=== PATIENT | male | born 1960 | race Caucasian/White ===

== ENCOUNTER → 2018-10-29 | Outpatient (CLI) | payer BC ==
[2018-10-29 15:45] LABS: Basophils # (A) 0.1 k/uL (0-0.2); Basophils % (A) 1 %; Eosinophils # (A) 0.2 k/uL (0-0.7); Eosinophils % (A) 2 %; HCT 44.1 % (39.0-53.0); HGB 14.7 gm/dL (13.0-17.5); Lymphocytes # (A) 1.6 k/uL (1.0-4.8); Lymphocytes % (A) 23 %; MCHC 33.3 g/dL (31.0-37.0); Mean Platelet Volume 6.8; Monocytes # (A) 0.4 k/uL (0-1.0); Monocytes % (A) 6 %; Neutrophils # (A) 4.6 k/uL (1.3-7.7); Neutrophils % (A) 66 %; Platelet Count 222 k/uL (150-450); RBC 4.74 m/uL (4.30-5.90)
[2018-10-29 22:51] LABS: Gliadin AB IgA, Unit 0.7 U/mL
[2018-10-29 23:16] LABS: Albumin 4.5 g/dL (3.80-4.90); Albumin/Globulin Ratio 2.5 (1.60-3.17); Calcium 9.3 mg/dL (8.7-10.3); Globulin 1.8 g/dL (1.6-3.3); Total Bilirubin 0.5 mg/dL (0.2-1.2); Total Protein 6.3 g/dL (6.2-8.2)
== END | disposition home or self-care (01) ==
LOC: LABWHC1 12:58
PROVIDERS: ATTEND Internal Medicine
DX: R14.0 Abdominal distension (gaseous) (principal)
CPT/HCPCS: 36415; 80053; 83516; 84153; 84443; 84481; 85025

== ENCOUNTER 2018-11-18 09:17 | Day surgery (SDC) | payer BC ==
[2018-11-17 08:10] VITALS: BMI 27.0
[~2018-11-18 09:17] MED LIST: LACTATED RINGERS 1,000 ML IV SCH; LIDOCAINE 1% 20 ML VIAL (10MG/ML) FOR IV START INTRADERMA PRN
[2018-11-18 09:40] VITALS: RESP 16; TEMP 97.8
[2018-11-18] MEDS ORDERED: PROPOFOL 10 MG/ML 20 ML VIAL IV ONE (10:46)
[2018-11-18] MEDS ORDERED: LIDOCAINE 1% INJ 10MG/ML (20 ML MDV) ONE (10:46)
[2018-11-18] MEDS ORDERED: LACTATED RINGERS 1,000 ML IV ONE (11:51)
--- NOTE | 2018-11-18 11:55 | P.PCN ---
Date of Procedure: 11/18/18 Description of Procedure: BRIEF HISTORY: Pleasant 58-year-old male who was seen in the outpatient setting with reports of increased gas and distention. The patient had reported that over the prior 4 months before being seen he had been suffering from increased gas and abdominal distention. He denied any sick contacts, or unusual foods, new medications but did report an increase in stress. He reported feeling more bothered at night, and having increased flatulence. He also reported some left-sided abdominal aching pain. He continues to report one bowel movement daily. He also reported some blood with wiping. No nausea or vomiting, heartburn or reflux. He did report a high intake of dairy products. No family history of colon cancer. No unintentional weight loss. PROCEDURE PERFORMED: Colonoscopy with biopsy. PREOPERATIVE DIAGNOSIS: Screening colonoscopy, blood per rectum, abdominal pain. ESTIMATED BLOOD LOSS: Minimal. IV sedation per Anesthesia. PROCEDURE: After informed consent was obtained, the patient, was brought into the endoscopy unit. IV sedation was administered by Anesthesia under continuous monitoring. Digital rectal examination was significant for a palpable lesion in the rectum. Initially the Olympus CF-190 flexible video colonoscope was then inserted in the rectum, gradually advanced into the cecum without any difficulty. Careful examination was performed as the scope was gradually being withdrawn. the terminal ileum was intubated and biopsied.Ileocecal valve and the appendiceal orifice were visualized and appeared normal. Prep wafairMucosa of the cecum, ascending colon, transverse colon, descending colon, and sigmoid colon appeared normal. Random biopsies were taken in the right colon, transverse colon and left colon given complaints of abdominal distention and gas. In the rectum and mass starting at 10 cm from the anal verge were noted. The mass was large, friable and nonobstructing. Multiple biopsies of the mass were taken, with suspicion for rectal cancer. Retroflexion was performed in the rectum and no les ions were seen, mild internal hemorrhoids noted. The patient tolerated the procedure well. IMPRESSION: Nonobstructing rectal mass with suspicion for rectal cancer, multiple biopsies taken. Mild internal hemorrhoids. Random biopsies of the terminal ileum, right colon, transverse and left colon. RECOMMENDATIONS: Findings of this examination were discussed with the patient. Okay to resume diet. Avoid NSAID medications and anticoagulation for today and tomorrow and biopsies taken. Await pathology from biopsies. We'll refer patient to oncology service for further evaluation. Follow-up in GI clinic as previously scheduled.
[2018-11-18 12:11] VITALS: BP 117/75; PULSE 49
== END 2018-11-18 12:35 | disposition home or self-care (01) ==
LOC: ORWHC2ENDO 09:17
PROVIDERS: ATTEND Internal Medicine
DX: Z12.11 Encounter for screening for malignant neoplasm of colon (principal); C20 Malignant neoplasm of rectum; K64.8 Other hemorrhoids
CPT/HCPCS: 88305; 45380; J2001; J2704

== ENCOUNTER → 2018-11-27 | Outpatient (CLI) | payer BC ==
--- NOTE | 2018-11-30 08:12 | PE ---
EXAMINATION TYPE: PET CT fusion skull to thigh DATE OF EXAM: 11/27/2018 COMPARISON: NONE HISTORY: Rectal cancer. Initial staging exam no prior chemotherapy, radiation or surgery of the recta l carcinoma. TECHNIQUE: Following the intravenous administration of 10.81 mCi of F-18 FDG, whole body images are performed from the skull base to the midthigh. Images are reviewed on the computer in the coronal, a xial, and sagittal planes. Reconstructed rotating images are created on independent workstation and reviewed on the computer. A localization and attenuation correction CT is performed in conjunction with the PET scan. SCAN: Initial FINDINGS: Mediastinal background: 1.73 Abdominal background: 2.5 SKULL BASE AND NECK: No suspicious hypermetabolic uptake CHEST, MEDIASTINUM, AND HILAR REGION: No suspicious hypermetabolic uptake ABDOMEN AND PELVIS: The patient's known primary rectal carcinoma demonstrates a maximum SUV of 8.2. OSSEOUS STRUCTURES: Activity within the lumbar spine has a similar uptake in comparison to abdominal background with a maximum SUV up to 2.47 at L4 and L5 and 2.47 also at L1. Remainder of the osseous s tructures demonstrate FDG avidity below abdominal background. OTHER CT: There is mild mucosal thickening in the ethmoid sinuses and incidentally noted xiomara bullo sa bilaterally. Remaining paranasal sinuses and mastoid air cells are well aerated. Degenerative liang ges of the spine are mild to moderate. Punctate sclerotic focus of the left ischium may relate to zane ign bone island on image 256. No hypermetabolic activity. Osseous demineralization of the pelvis is n oted. Pseudoarthrosis of the left L1 transverse process is incidentally seen. The lungs demonstrate m inimal dependent bibasilar atelectasis and scattered pulmonary blebs. Very minimal bilateral retroare olar gynecomastia is also seen. The unenhanced liver, spleen, adrenal glands, pancreas, and kidneys a re unremarkable in morphology. No hydronephrosis or nephrolithiasis. No greater than 1 cm short axis lymph node in the abdomen or pelvis. No suspicious adenopathy is seen within the mesial rectal fascia . No dilated bowel to suggest obstruction. Few colonic diverticula are seen without pericolonic fat s tranding. There is a questionable small hiatal hernia. IMPRESSION: Localized disease with focal hypermetabolic activity in a long segment of the patient's p rimary known rectal carcinoma without evidence of visceral or osseous metastasis in the chest, abdome n, and or pelvis. No enlarged or hypermetabolic adenopathy.
== END | disposition home or self-care (01) ==
LOC: RADPETMAIN 15:13
PROVIDERS: ATTEND Internal Medicine
DX: C20 Malignant neoplasm of rectum (principal)
CPT/HCPCS: 78815; A9552

== ENCOUNTER 2019-05-06 01:51 | Emergency (ER) | payer BC ==
[2019-05-06] MEDS ORDERED: SODIUM CHLORIDE 0.9% 1,000 ML IV ONE (02:11)
--- NOTE | 2019-05-06 02:19 | ED ---
Abdominal Pain HPI - General Chief Complaint: Abdominal Pain Stated Complaint: Issues with Ileostomy Time Seen by Provider: 05/06/19 02:03 Source: patient, family Mode of arrival: wheelchair Limitations: no limitations - History of Present Illness Initial Comments: This patient is a 59-year-old man who presents to be evaluated for abdominal discomfort. The patient relates that he recently had an ileostomy placed after having been found to have rectal cancer. The patient states that from the morning on he has been developing diffuse crampy/bloating abdominal pain. The patient states that he has also had not much stool or gas production for the p ast 6 hours or so. In addition to the discomfort, patient has also been having some nausea this evening though no vomiting. No fever or chills. No chest symptoms. No pain or swelling of the legs. The patient does note that his urination has been less frequent tonight. MD Complaint: abdominal pain Onset/Timin -: hour(s) Location: diffuse Radiation: none Migration to: no migration Severity: moderate Quality: cramping, other (Bloating) Consistency: constant Improves With: nothing Worsens With: nothing Associated Symptoms: nausea - Related Data Home Medications Medication Instructions Recorded Confirmed L.acidoph,Paracasei, B.lactis 1 each PO DAILY 11/17/18 11/18/18 [Probiotic] Allergies Allergy/AdvReac Type Severity Reaction Status Date / Time No Known Allergies Allergy Verified 05/06/19 02:00 Review of Systems ROS Statement: Those systems with pertinent positive or pertinent negative responses have been documented in the HPI. ROS Other: All systems not noted in ROS Statement are negative. Constitutional: Denies: fever, chills Respiratory: Denies: cough, dyspnea Cardiovascular: Denies: chest pain, palpitations, edema, syncope Gastrointestinal: Reports: abdominal pain, nausea. Denies: vomiting, diarrhea, melena, hematochezia Genitourinary: Denies: dysuria, hematuria, testicular pain, testicular mass Musculoskeletal: Denies: back pain Skin: Denies: rash Neurological: Denies: headache Past Medical History Past Medical History: Cancer Additional Past Medical History / Comment(s): increased gas and blood in stool History of Any Multi-Drug Resistant Organisms: None Reported Past Surgical History: Bowel Resection Additional Past Surgical History / Comment(s): surgery on rt great toe, Past Anesthesia/Blood Transfusion Reactions: No Reported Reaction Past Psychological History: No Psychological Hx Reported Smoking Status: Never smoker Past Alcohol Use History: None Reported Past Drug Use History: None Reported - Past Family History Mother Family Medical History: Cancer Father Family Medical History: Cancer General Exam Limitations: no limitations General appearance: alert, in no apparent distress Head exam: Present: atraumatic, normocephalic Eye exam: Present: normal appearance. Absent: scleral icterus, conjunctival injection ENT exam: Present: mucous membranes dry Neck exam: Present: normal inspection Respiratory exam: Present: normal lung sounds bilaterally. Absent: respiratory distress, wheezes, rales, rhonchi, stridor Cardiovascular Exam: Present: regular rate, normal rhythm, normal heart sounds. Absent: systolic murmur, diastolic murmur, rubs, gallop GI/Abdominal exam: Present: distended (Mild), other (Surgical incisions are clean dry and intact. There is presence of an ileostomy in the right lower quadrant. Very minimal output in the bag currently. no blood.). Absent: tenderness, guarding, rebound, rigid, mass Extremities exam: Present: normal inspection, normal capillary refill. Absent: pedal edema, calf tenderness Back exam: Present: normal inspection Neurological exam: Present: alert Skin exam: Present: warm, dry, intact, normal color. Absent: rash Course Vital Signs 05/06/19 01:57 Temperature 98.0 F Pulse Rate 71 Respiratory 18 Rate Blood Pressure 124/95 O2 Sat by Pulse 95 Oximetry Medical Decision Making - Medical Decision Making Patient's 59-year-old man presenting with diffuse abdominal pain, decreased ostomy output, his abdominal series does show small bowel obstruction and some free air under the diaphragm. The patient is only 8 days postoperative, but st ill concern for perforation. Patient started on antibiotics. NG tube placement. Discussed results with patient who would prefer to go back to [facility] and this makes sense given that his surgery was there. - Lab Data Result diagrams: 05/06/19 02:23 05/06/19 02:23 Lab Results 05/06/19 05/06/19 05/06/19 Range/Units 02:23 02:23 02:23 WBC 6.1 (3.8-10.6) k/uL RBC 4.02 L (4.30-5.90) m/uL Hgb 13.4 (13.0-17.5) gm/dL Hct 39.1 (39.0-53.0) % MCV 97.3 (80.0-100.0) fL MCH 33.4 (25.0-35.0) pg MCHC 34.3 (31.0-37.0) g/dL RDW 13.3 (11.5-15.5) % Plt Count 319 (150-450) k/uL Neutrophils % 79 % Lymphocytes % 4 % Monocytes % 9 % Eosinophils % 3 % Basophils % 1 % Neutrophils # 4.8 (1.3-7.7) k/uL Lymphocytes # 0.2 L (1.0-4.8) k/uL Monocytes # 0.6 (0-1.0) k/uL Eosinophils # 0.2 (0-0.7) k/uL Basophils # 0.0 (0-0.2) k/uL Sodium 133 L (137-145) mmol/L Potassium 4.5 (3.5-5.1) mmol/L Chloride 103 (98-107) mmol/L Carbon Dioxide 21 L (22-30) mmol/L Anion Gap 9 mmol/L BUN 22 H (9-20) mg/dL Creatinine 0.80 (0.66-1.25) mg/dL Est GFR (CKD-EPI)AfAm >90 (>60 ml/min/1.73 sqM) Est GFR (CKD-EPI)NonAf >90 (>60 ml/min/1.73 sqM) Glucose 111 H (74-99) mg/dL Plasma Lactic Acid Ryan 0.8 (0.7-2.0) mmol/L Calcium 8.9 (8.4-10.2) mg/dL Total Bilirubin 1.1 (0.2-1.3) mg/dL AST 98 H (17-59) U/L ALT 175 H (21-72) U/L Alkaline Phosphatase 102 (38-126) U/L Total Protein 6.7 (6.3-8.2) g/dL Albumin 3.9 (3.5-5.0) g/dL Disposition Clinical Impression: Small bowel obstruction Disposition: OTHER INSTITUTION NOT DEFINED Condition: Serious Is patient prescribed a controlled substance at d/c from ED?: No Referrals: Alex Beckham MD [Primary Care Provider] - 1-2 days - Out of Hospital Transfer - Req. Specs Out of Hospital Transfer - Requested Specifics: Other Emergency Center
[2019-05-06 02:31] LABS: Basophils % (A) 1 %; Eosinophils # (A) 0.2 k/uL (0-0.7); Eosinophils % (A) 3 %; HCT 39.1 % (39.0-53.0); HGB 13.4 gm/dL (13.0-17.5); Lymphocytes # (A) 0.2 k/uL (1.0-4.8); Lymphocytes % (A) 4 %; MCH 33.4 pg (25.0-35.0); MCHC 34.3 g/dL (31.0-37.0); MCV 97.3 fL (80.0-100.0); Mean Platelet Volume 6.4; Monocytes # (A) 0.6 k/uL (0-1.0); Monocytes % (A) 9 %; Neutrophils # (A) 4.8 k/uL (1.3-7.7); Neutrophils % (A) 79 %; Platelet Count 319 k/uL (150-450); RBC 4.02 m/uL (4.30-5.90); RDW 13.3 % (11.5-15.5); WBC 6.1 k/uL (3.8-10.6)
[2019-05-06 02:41] LABS: ALT 175 U/L (21-72); AST 98 U/L (17-59); African American GFR (CKD) >90 (>60 ml/min/1.73 sqM); Albumin 3.9 g/dL (3.5-5.0); Alkaline Phosphatase 102 U/L (38-126); Anion Gap 9 mmol/L; Blood Urea Nitrogen 22 mg/dL (9-20); Calcium 8.9 mg/dL (8.4-10.2); Carbon Dioxide 21 mmol/L (22-30); Chloride 103 mmol/L (98-107); Glucose 111 mg/dL (74-99); Potassium 4.5 mmol/L (3.5-5.1); Sodium 133 mmol/L (137-145); Total Bilirubin 1.1 mg/dL (0.2-1.3); Total Protein 6.7 g/dL (6.3-8.2)
[2019-05-06] MEDS ORDERED: ONDANSETRON 4 MG/2 ML VIAL IVP STA ×2 (02:42→08:48)
[2019-05-06] MEDS ORDERED: HYDROmorphone 1 MG/ML 1 ML SYRINGE IVP STA ×2 (02:42→08:32)
[2019-05-06] MEDS ORDERED: PIPERACILLIN-TAZOBACTAM 3.375 GM in SODIUM CHLORIDE 0.9% 100 ML IVPB STA (02:43)
--- NOTE | 2019-05-06 02:49 | XR ---
EXAMINATION TYPE: XR abdomen acute w cxr DATE OF EXAM: 05/06/2019 COMPARISON: NONE HISTORY: Possible bowel obstruction TECHNIQUE: Chest x-ray with supine and upright abdomen FINDINGS: Heart and mediastinum are normal. There is small area of atelectasis left lower lung field. There is free air under the diaphragm. There are multiple dilated loops of small bowel throughout the abdomen. There are fluid levels. There is very little large bowel gas. There are no pathologic calcifications . IMPRESSION: There is a pneumoperitoneum. There are multiple dilated small bowel loops consistent with mechanical distal small bowel obstruction. This exam was discussed with Dr. Jaimes at 2:45 AM.
--- NOTE | 2019-05-06 04:31 | XR ---
EXAMINATION TYPE: XR chest 1V portable DATE OF EXAM: 05/06/2019 COMPARISON: 05/06/2019 HISTORY: NG tube placement TECHNIQUE: Single frontal view of the chest is obtained. FINDINGS: There is nasogastric tube with the tip in the gastric fundus. Lungs are clear of consolida tion. There is some focal atelectasis left lower lobe. There is no heart failure. There is pneumoperi toneum and free air seen over the left upper quadrant. IMPRESSION: Persistent pneumoperitoneum. Mild atelectasis left lung base unchanged. No heart failure .
--- NOTE | 2019-05-06 04:54 | CT ---
EXAMINATION TYPE: CT abdomen pelvis w con DATE OF EXAM: 05/06/2019 COMPARISON: None HISTORY: pain CT DLP: 1029.5 mGycm Automated exposure control for dose reduction was used. TECHNIQUE: Helical acquisition of images was performed from the lung bases through the pelvis. CONTRAST: Performed without Oral Contrast and with IV Contrast, patient injected with 100 mL of Isovue 300. FINDINGS: There is some atelectasis at the lung bases. Heart size is normal. There is nasogastric tube with the tip in the stomach. There is dilated fluid-filled stomach. Gallbladder appears normal. Liver shows n o focal defect. Spleen is intact. There is no pancreatic mass. There are numerous dilated loops of fluid-filled small bowel. Small bowel is dilated up to 4.5 cm. Th ere is free fluid in the pelvis. There is a mild pneumoperitoneum. There is air around the anterior r ight lobe of the liver. There is small amount of air within the anterior abdominal wall on the right side. There is loop ileostomy in the right mid abdomen. The small bowel appears dilated up to the ile ostomy. The kidneys show satisfactory contrast opacification. There is no hydronephrosis. There is no adrenal mass. Ureters are not dilated. There is no retroperitoneal adenopathy. Bladder distends smoothly. Lumbar vertebra have normal spacing and alignment. There is no compression fracture. Bony pelvis is i ntact. IMPRESSION: THERE IS A MILD PNEUMOPERITONEUM. SOURCE OF THE AIR IS NOT IDENTIFIED. THERE IS DILATED SMALL BOWEL W ITH FLUID CONSISTENT WITH DISTAL MECHANICAL SMALL BOWEL OBSTRUCTION PROBABLY AT THE SITE OF LOOP ILEO STOMY. THERE IS MILD FREE FLUID IN THE PELVIS.
[2019-05-06] MEDS ORDERED: SODIUM CHLORIDE 0.9% 1,000 ML IV SCH (08:30)
[2019-05-06 08:49] VITALS: RESP 16
[2019-05-06 11:07] VITALS: BP 141/85; PULSE 82; TEMP 97.9
== END 2019-05-06 10:45 | disposition other institution (70) ==
LOC: EC 01:51
DX: K56.609 Unspecified intestinal obstruction, unspecified as to partial versus complete obstruction (principal); Z93.2 Ileostomy status; Z85.048 Personal history of other malignant neoplasm of rectum, rectosigmoid junction, and anus
CPT/HCPCS: 36415; 80053; 83605; 85025; 87040; 74022; 71045; 74177; 99285; 96365; 96366 ×3; 96375 ×2; 96376 ×2; 96361 ×2; J2543; J2405; J1170; Q9967